=== PATIENT | male | born 1980 | race African-American/Black ===

== ENCOUNTER → 2020-04-22 10:03 | Outpatient (CLI) | payer OTHER, SELFPAY ==
--- NOTE | 2020-04-22 | DI.US.S_ITS ---
PROCEDURE: US ABDOMEN LIMITED INDICATIONS: HEP B, ELEVATED LFTS TECHNIQUE: Real-time scanning was performed of the abdominal and retroperitoneal organs, with image documentation. COMPARISON: None. FINDINGS: Liver: Liver is normal in size and slightly increased in echogenicity. Gallbladder: The gallbladder wall measures 3 mm in diameter. No stones, sludge, pericholecystic fluid, or sonographic Coy sign. Biliary ducts: Intrahepatic bile ducts are non-dilated. Extrahepatic bile duct caliber measures 3 mm. Normal is 6-7 mm or less in diameter, or 10 mm or less post-cholecystectomy. Pancreas: The pancreas is not visualized due to bowel gas. Miscellaneous: The portal vein, hepatic arteries, and hepatic veins demonstrate normal Doppler waveforms. No free fluid. IMPRESSION: 1. No cholelithiasis or findings to suggest choledocholithiasis or acute cholecystitis. 2. Slightly increased hepatic echogenicity which may be associated with fatty infiltration of the liver. Dictated by: Cheryl Montero M.D. on 04/22/2020 at 13:19 Approved by: Cheryl Montero M.D. on 04/22/2020 at 13:23
[2020-04-22 12:17] LABS: HEMOLYSIS < 15 (0-50); Iron 99 ug/dL (49-181)
[2020-04-22 12:20] LABS: Alanine Aminotransferase 24 IU/L (<50); Albumin 4.3 g/dL (3.5-5.0); Albumin Globulin Ratio 1.2 (1.0-2.8); Alkaline Phosphatase 76 U/L (38-126); Aspartate Aminotransferase 36 IU/L (17-59); Bilirubin Total 0.8 mg/dL (0.2-1.3); Bilirubin Unconjugated 0.7 mg/dL (0.0-1.1); Globulin 3.5 g/dL (1.7-4.1); HEMOLYSIS < 15 (0-50); Total Protein 7.8 g/dL (6.3-8.2)
[2020-04-22 12:28] LABS: Percent Iron Saturation 34 % (20-50); Total Iron Binding Capacity 295 ug/dL (261-462); Transferrin 238 mg/dL (206-381)
[2020-04-22 12:57] LABS: Hepatitis B Surface Antigen POSITIVE s/c (NEGATIVE)
[2020-04-22 13:10] LABS: Hep C Virus Ab w/Reflex Quant NEGATIVE s/c (NEGATIVE)
[2020-04-23 02:32] LABS: Hepatitis B Surf AB Quant <3.1 mIU/mL (Immunity>9.9)
[2020-04-23 03:36] LABS: Alpha 1 Anti Trypsin 144 mg/dL (101-187); Ceruloplasmin 25.5 mg/dL (16.0-31.0); Hepatitis B Core Antibody Positive (Negative); Hepatitis BE Antigen Negative (Negative); IGA 337 mg/dL (90-386); IGG 1375 mg/dL (603-1613); IGM 68 mg/dL (20-172)
[2020-04-23 18:07] LABS: Tissue Transglutaminase IgA <2 U/mL (0-3)
[2020-04-25 10:52] LABS: Anti Mitochondrial ABY IGG <20.0 Units (0.0-20.0)
[2020-04-25 12:08] LABS: Smooth Muscle Antibody 21 Units (0-19)
[2020-04-25 14:12] LABS: ANA Screen, IFA Negative (.)
[2020-04-25 19:06] LABS: Hepatitis B Virus DNA 240 IU/mL (.)
[2020-04-26 11:17] LABS: Hepatitis Be Antibody Positive (Negative)
== END ==
PROVIDERS: Internal Medicine; PCP Family Medicine Geriatric Medicine; Referring Provider Family Medicine Geriatric Medicine; Visit Provider Nurse Practitioner Family
DX: B19.10 Unspecified viral hepatitis B without hepatic coma (principal); R79.89 Other specified abnormal findings of blood chemistry
CPT/HCPCS: 36415; 76705; 80076; 82103; 82390; 82784; 83516; 83540; 83550; 86038; 86704; 86706; 86707; 86803; 87340; 87350; 87517